=== PATIENT | female | born 1950 | race Native Hawaiian/Other Pacific Islander ===

== ENCOUNTER 2020-04-16 14:29 | Emergency (ER) | payer OTHER, BC ==
[~2020-04-16] VITALS: Ht 162.6 cm; Wt 68.0 kg
[2020-04-16 14:43] VITALS: BP 164/79; TEMP 97.7
[2020-04-16 15:28] LABS: PLATELET COUNT 268 K/uL (152-353)
[2020-04-16 15:42] LABS: POTASSIUM 3.5 mmol/L (3.6-5.2)
[2020-04-16 15:48] LABS: PARTIAL THROMBOPLASTIN TIME 21.4 SECONDS (24.5-33.6)
== END 2020-04-16 16:55 | disposition home or self-care (01) ==
LOC: ED 14:29
PROVIDERS: Family Medicine
DX: D64.89 Other specified anemias (principal); R42 Dizziness and giddiness; E87.6 Hypokalemia; R51 Headache; Z86.73 Personal history of transient ischemic attack (TIA), and cerebral infarction without residual deficits
CPT/HCPCS: 80053; 80307; 81000; 85027; 85610; 85730; 99284

== ENCOUNTER 2020-04-28 10:43 | Outpatient (CLI) | payer OTHER, BC ==
[2020-04-28 11:10] LABS: PLATELET COUNT 240 K/uL (152-353)
[2020-04-28 11:33] LABS: POTASSIUM 4.2 mmol/L (3.6-5.2)
== END 2020-04-28 19:17 | disposition home or self-care (01) ==
LOC: LAB 10:43
PROVIDERS: Internal Medicine
DX: I10 Essential (primary) hypertension (principal); J45.909 Unspecified asthma, uncomplicated
CPT/HCPCS: 80053; 80061; 81000; 84439; 84443; 85027

== ENCOUNTER → 2020-05-06 | Outpatient (CLI) | payer OTHER, BC ==
[2020-05-06 18:12] LABS: POTASSIUM 3.8 mmol/L (3.6-5.2)
== END ==
LOC: LAB 16:58
PROVIDERS: Nurse Practitioner
DX: G44.209 Tension-type headache, unspecified, not intractable (principal)
CPT/HCPCS: 80053

== ENCOUNTER 2020-05-20 18:17 | Outpatient (CLI) | payer OTHER, BC ==
[2020-05-20 18:34] LABS: PLATELET COUNT 220 K/uL (152-353)
== END 2020-05-20 20:50 | disposition home or self-care (01) ==
LOC: LAB 18:17
PROVIDERS: Nurse Practitioner
DX: E16.1 Other hypoglycemia (principal); R10.11 Right upper quadrant pain
CPT/HCPCS: 83036; 83735; 85027

== ENCOUNTER 2020-06-03 08:54 | Outpatient (CLI) | payer OTHER, BC | END 2020-06-03 22:51 | disposition home or self-care (01) | LOC: US 08:54 | DX: R10.11 Right upper quadrant pain (principal) ==

== ENCOUNTER 2020-06-16 14:57 | Outpatient (CLI) | payer OTHER, BC | END 2020-06-16 19:53 | disposition home or self-care (01) | LOC: LAB 14:57 | DX: D50.9 Iron deficiency anemia, unspecified (principal) | CPT/HCPCS: 82552; 82728; 83550 ==

== ENCOUNTER 2020-08-02 11:39 | Outpatient (CLI) | payer OTHER, BC ==
[2020-08-02 12:08] LABS: PLATELET COUNT 181 K/uL (152-353)
[2020-08-02 12:18] LABS: POTASSIUM 4.1 mmol/L (3.6-5.2)
== END 2020-08-02 19:20 | disposition home or self-care (01) ==
LOC: LAB 11:39
PROVIDERS: Nurse Practitioner
DX: D50.0 Iron deficiency anemia secondary to blood loss (chronic) (principal)
CPT/HCPCS: 80048; 82728; 83540; 83550; 85027

== ENCOUNTER 2021-05-18 15:50 | Outpatient (CLI) | payer OTHER, BC | END 2021-05-18 23:59 | disposition home or self-care (01) | LOC: RAD 15:50 | PROVIDERS: ATTEND Physician Assistant | DX: Z13.820 Encounter for screening for osteoporosis (principal); N95.8 Other specified menopausal and perimenopausal disorders ==

== ENCOUNTER 2022-06-14 17:25 | Outpatient (CLI) | payer OTHER, BC | END 2022-06-14 19:26 | disposition home or self-care (01) | LOC: LAB 17:25 | PROVIDERS: ATTEND Internal Medicine | DX: R30.0 Dysuria (principal) | CPT/HCPCS: 87077; 87086; 87088; 87186 ==

== ENCOUNTER 2022-08-25 11:52 | Outpatient (CLI) | payer OTHER, BC ==
[2022-08-25 12:32] LABS: PLATELET COUNT 298 K/uL (152-353)
[2022-08-25 14:46] LABS: POTASSIUM 4.4 mmol/L (3.6-5.2)
== END 2022-08-25 19:05 | disposition home or self-care (01) ==
LOC: LAB 11:52
PROVIDERS: ATTEND Internal Medicine
DX: I10 Essential (primary) hypertension (principal)
CPT/HCPCS: 80053; 80061; 84439; 84443; 85027

== ENCOUNTER 2022-11-29 12:26 | Outpatient (CLI) | payer OTHER, BC ==
[2022-11-29 12:58] LABS: PLATELET COUNT 317 K/uL (152-353)
== END 2022-11-29 19:35 | disposition home or self-care (01) ==
LOC: LAB 12:26
PROVIDERS: ATTEND Internal Medicine
DX: K25.7 Chronic gastric ulcer without hemorrhage or perforation (principal); D51.0 Vitamin B12 deficiency anemia due to intrinsic factor deficiency
CPT/HCPCS: 80053; 81002; 82607; 82728; 82746; 83540; 83550; 84439; 84443; 85027

== ENCOUNTER 2022-11-30 08:27 | Outpatient (CLI) | payer OTHER, BC ==
[2022-11-30] VITALS (8 sets, daily range): BP systolic 125–154; BP diastolic 54–65; TEMP 98–99.3
[~2022-11-30] VITALS: Ht 162.6 cm; Wt 67.6 kg
[2022-11-30 22:11] LABS: PLATELET COUNT 294 K/uL (152-353)
== END 2022-11-30 18:58 | disposition home or self-care (01) ==
LOC: INF 08:27
PROVIDERS: ATTEND Internal Medicine
PROC: 30233N1 Transfusion of Nonautologous Red Blood Cells into Peripheral Vein, Percutaneous Approach (ICD-10-PCS; principal; 2022-11-30)
DX: D64.9 Anemia, unspecified (principal)
CPT/HCPCS: 36430; 85027; 86850; 86900; 86901; 86922; P9016

== ENCOUNTER 2023-02-20 14:32 | Outpatient (CLI) | payer OTHER, BC ==
[2023-02-20 15:24] LABS: POTASSIUM 4.8 mmol/L (3.6-5.2)
[2023-02-20 15:30] LABS: PLATELET COUNT 296 K/uL (152-353)
== END 2023-02-20 22:25 | disposition home or self-care (01) ==
LOC: LAB 14:32
PROVIDERS: ATTEND Internal Medicine
DX: D51.0 Vitamin B12 deficiency anemia due to intrinsic factor deficiency (principal); I10 Essential (primary) hypertension; D64.89 Other specified anemias
CPT/HCPCS: 80053; 80061; 82607; 82728; 83540; 83550; 84439; 84443; 85027

== ENCOUNTER 2023-05-04 12:50 | Emergency (ER) | payer OTHER ==
[~2023-05-04] VITALS: Ht 162.6 cm; Wt 63.5 kg
[2023-05-04 15:40] VITALS: BP 151/65; TEMP 98.7
== END 2023-05-04 16:50 | disposition short-term general hospital (02) ==
LOC: ED 12:50
DX: S82.009A Unspecified fracture of unspecified patella, initial encounter for closed fracture (principal); V89.2XXA Person injured in unspecified motor-vehicle accident, traffic, initial encounter
CPT/HCPCS: 99285

== ENCOUNTER 2023-05-24 13:23 | Outpatient (CLI) | payer OTHER, BC ==
[2023-05-24 13:43] LABS: PLATELET COUNT 284 K/uL (152-353)
[2023-05-24 13:54] LABS: POTASSIUM 4.1 mmol/L (3.6-5.2)
== END 2023-05-24 22:30 | disposition home or self-care (01) ==
LOC: LAB 13:23
PROVIDERS: ATTEND Internal Medicine
DX: D50.8 Other iron deficiency anemias (principal)
CPT/HCPCS: 80053; 81002; 82607; 82746; 83540; 85027